=== PATIENT | male | born 1980 | race Caucasian/White ===

== ENCOUNTER → 2018-01-18 | Outpatient (CLI) | payer OTHER ==
[~2018-01-18] MED LIST: AZIT250T PO
[2018-01-18 13:50] LABS: INFLUENZA A PCR Neg for Influ A (NEG); INFLUENZA B PCR Neg for Influ B (NEG)
== END | disposition home or self-care (01) ==
LOC: C.LABPBG 11:36
PROVIDERS: ATTEND Physician Assistant Medical
DX: R68.89 Other general symptoms and signs (principal)

== ENCOUNTER 2018-01-20 05:17 | Emergency (ER) | payer OTHER ==
[~2018-01-20] VITALS: Ht 165.1 cm; Wt 80.0 kg
[2018-01-20 05:19] VITALS: Ht 165.1 cm; Wt 80.0 kg
[2018-01-20] MEDS ORDERED: KETOROLAC TROMETHAMINE 30 MG/ML VIAL IV STA (05:34)
[2018-01-20] MEDS ORDERED: ACETAMINOPHEN 500 MG TAB PO STA (05:34)
[2018-01-20] MEDS ORDERED: SODIUM CHLORIDE 0.9% 1000ML 1,000 ML IV ONE (05:45)
[2018-01-20 06:05] LABS: BASO % 0.3 %; BASO ABS # 0.03 K/uL (0-0.2); EOS % 1.1 %; EOS ABS # 0.12 K/uL (0-0.5); HEMATOCRIT 44.6 % (42-52); HEMOGLOBIN 16.2 g/dL (14.0-18.0); IG# 0.02 K/uL (0.00-0.02); LYMPH % 23.3 %; LYMPH ABS # 2.46 K/uL (1.2-3.4); MEAN CORPUSCULAR HEMOGLOBIN 32.3 pg (25-34); MEAN CORPUSCULAR HGB CONC 36.3 g/dl (32-36); MEAN PLATELET VOLUME 9.2 fL (7.4-10.4); MONO % 20.2 %; MONO ABS # 2.13 K/uL (0.11-0.59); NEUT % 54.9 %; NEUT ABS # 5.81 K/uL (1.4-6.5); PLATELET COUNT 224 K/uL (130-400); RED CELL DISTRIBUTION WIDTH CV 12.4 % (11.5-14.5); RED CELL DISTRIBUTION WIDTH SD 39.8 fL (36.4-46.3); WHITE BLOOD COUNT 10.57 K/uL (4.8-10.8)
[2018-01-20 06:20] LABS: ALBUMIN 3.7 gm/dl (3.4-5.0); CALCIUM 9.3 mg/dl (8.5-10.1); CREATININE 1.26 mg/dl (0.60-1.40); POTASSIUM 3.8 mmol/L (3.5-5.1)
[2018-01-20 06:23] LABS: TOTAL PROTEIN 8.2 gm/dl (6.4-8.2)
--- NOTE | 2018-01-20 06:43 | DIAGNOSTIC IMAGING REPORT ---
CHEST 2 VIEWS ROUTINE CLINICAL HISTORY: Fever. Cough. Dyspnea COMPARISON STUDY: No previous studies for comparison. FINDINGS: The bones soft tissues and hemidiaphragms are normal. The cardiomediastinal silhouette is normal. The lungs are clear. The pulmonary vasculature is normal. IMPRESSION: Negative chest. The above report was generated using voice recognition software. It may contain grammatical, syntax or spelling errors. Electronically signed by: Ky Lindsey M.D. 01/20/2018 6:42 AM Dictated Date/Time: 01/20/2018 6:41 AM
[2018-01-20 06:59] VITALS: TEMP 37.2
[2018-01-20] MEDS ORDERED: AZITHROMYCIN 250 MG TAB PO ONE (07:00)
[2018-01-20] MEDS ORDERED: AZIT250T PO (07:04)
[2018-01-20 07:17] VITALS: BP 129/76; PULSE 76; O2SAT 94
--- NOTE | 2018-01-20 08:50 | EMERGENCY ROOM VISIT NOTE ---
History First contact with patient: 05:25 Chief Complaint: RESPIRATORY PROBLEMS Stated Complaint: FLU LIKE SYM/FEVER Nursing Triage Summary: Fever x 5 days, headache, SOB, dry cough. Pt tested neg for influenza on Tue by Dr Mujica. History of Present Illness The patient is a 37 year old male who presents to the Emergency Room with complaints of fever, chills, cough, and intermittent shortness of breath for the past 4 or 5 days. The patient initially went to his primary care physician' s office where influenza swabs were performed and negative. The patient states his discomfort worsens tonight and he 7 difficulty controlling the fever with at -home medications. His last dose of Tylenol was about 8 hours ago. He rates his current discomfort a 6/10. Review of Systems More than 10 systems were reviewed and otherwise negative with the exception of history of present illness. Past Medical/Surgical History No chronic medical disease Family History No pertinent family history Social History Smoking Status: Former Smoker Housing Status: lives with family Occupation Status: employed Current/Historical Medications Scheduled Azithromycin (Zithromax), 250 MG PO DAILY Physical Exam Vital Signs Date Time Temp Pulse Resp B/P (MAP) Pulse Ox O2 Delivery O2 Flow Rate FiO2 01/20/18 07:17 76 17 129/76 94 01/20/18 06:59 37.2 76 17 129/76 94 Room Air 01/20/18 05:44 97 Room Air 01/20/18 05:19 38.1 105 22 147/52 96 Room Air Physical Exam VITALS: Vitals are noted on the nurse's note and reviewed by myself. Vital signs stable. GENERAL: Well-developed, well-nourished, white male who appears ill but nontoxic EARS: External ear normal. External auditory canals clear, tympanic membranes pearly logan without erythema or effusion bilaterally. EYES: Pupils equal round and reactive to light and accommodation. Conjunctivae without injection, sclerae without icterus. Extraocular movements intact. NOSE: Patent, turbinates without inflammation or discharge. MOUTH: Mucous membranes moist. Tonsils are not enlarged. Pharynx without erythema, blood, or exudate. Uvula midline. Airway patent. NECK: Supple without nuchal rigidity. No lymphadenopathy. No thyromegaly. Cervical spine is nontender. HEART: Regular rate and rhythm without murmurs gallops or rubs. LUNGS: Clear to auscultation bilaterally without wheezes, rales or rhonchi. No retractions or accessory muscle use. ABDOMEN: Positive normal bowel sounds x 4. Soft, nontender, without masses or organomegaly. No guarding or rebound tenderness. Medical Decision & Procedures ER Provider Diagnostic Interpretation: CHEST 2 VIEWS ROUTINE CLINICAL HISTORY: Fever. Cough. Dyspnea COMPARISON STUDY: No previous studies for comparison. FINDINGS: The bones soft tissues and hemidiaphragms are normal. The cardiomediastinal silhouette is normal. The lungs are clear. The pulmonary vasculature is normal. IMPRESSION: Negative chest. Laboratory Results 01/20/18 05:35 Red Blood Count 5.01, Mean Corpuscular Volume 89.0, Mean Corpuscular Hemoglobin 32.3, Mean Corpuscular Hemoglobin Concent 36.3, Mean Platelet Volume 9.2, Neutrophils (%) (Auto) 54.9, Lymphocytes (%) (Auto) 23.3, Monocytes (%) (Auto) 20.2, Eosinophils (%) (Auto) 1.1, Basophils (%) (Auto) 0.3, Neutrophils # (Auto ) 5.81, Lymphocytes # (Auto) 2.46, Monocytes # (Auto) 2.13, Eosinophils # (Auto ) 0.12, Basophils # (Auto) 0.03 01/20/18 05:35 Test 01/20/18 05:35 White Blood Count 10.57 K/uL (4.8-10.8) Red Blood Count 5.01 M/uL (4.7-6.1) Hemoglobin 16.2 g/dL (14.0-18.0) Hematocrit 44.6 % (42-52) Mean Corpuscular Volume 89.0 fL (80-100) Mean Corpuscular Hemoglobin 32.3 pg (25-34) Mean Corpuscular Hemoglobin Concent 36.3 g/dl (32-36) Platelet Count 224 K/uL (130-400) Mean Platelet Volume 9.2 fL (7.4-10.4) Neutrophils (%) (Auto) 54.9 % Lymphocytes (%) (Auto) 23.3 % Monocytes (%) (Auto) 20.2 % Eosinophils (%) (Auto) 1.1 % Basophils (%) (Auto) 0.3 % Neutrophils # (Auto) 5.81 K/uL (1.4-6.5) Lymphocytes # (Auto) 2.46 K/uL (1.2-3.4) Monocytes # (Auto) 2.13 K/uL (0.11-0.59) Eosinophils # (Auto) 0.12 K/uL (0-0.5) Basophils # (Auto) 0.03 K/uL (0-0.2) RDW Standard Deviation 39.8 fL (36.4-46.3) RDW Coefficient of Variation 12.4 % (11.5-14.5) Immature Granulocyte % (Auto) 0.2 % Immature Granulocyte # (Auto) 0.02 K/uL (0.00-0.02) Anion Gap 8.0 mmol/L (3-11) Est Creatinine Clear Calc Drug Dose 79.0 ml/min Estimated GFR () 84.5 Estimated GFR (Non- 72.9 BUN/Creatinine Ratio 7.9 (10-20) Calcium Level 9.3 mg/dl (8.5-10.1) Total Bilirubin 0.8 mg/dl (0.2-1) Aspartate Amino Transf (AST/SGOT) 21 U/L (15-37) Alanine Aminotransferase (ALT/SGPT) 48 U/L (12-78) Alkaline Phosphatase 82 U/L (45-117) Total Protein 8.2 gm/dl (6.4-8.2) Albumin 3.7 gm/dl (3.4-5.0) Globulin 4.5 gm/dl (2.5-4.0) Albumin/Globulin Ratio 0.8 (0.9-2) Medications Administered Medications (Trade) Dose Ordered Sig/[place] Route Start Time Stop Time Status Last Admin Dose Admin Sodium Chloride 1,000 ml @ 999 mls/hr Q1H1M ONCE IV 01/20/18 05:45 01/20/18 06:45 DC 01/20/18 05:41 999 MLS/HR Ketorolac Tromethamine (Toradol Inj) 30 mg NOW STAT IV 01/20/18 05:34 01/20/18 05:35 DC 01/20/18 05:40 30 MG Acetaminophen (Tylenol Tab) 1,000 mg NOW STAT PO 01/20/18 05:34 01/20/18 05:35 DC 01/20/18 05:41 1,000 MG Azithromycin (Zithromax Tab) 500 mg NOW ONCE PO 3/2/18 07:00 01/20/18 07:01 DC 01/20/18 07:04 500 MG ED Course Physical exam and history were performed. Nursing notes, EMR, and Medication List were personally reviewed. Patient appears to have flulike symptoms for the past several days. The patient appears ill but nontoxic on examination. He does have a fever. IV access was established and labs were obtained. The patient was hydrated with normal saline and given IV Toradol and oral Tylenol for comfort. Chest x-ray was performed. The patient's blood work is as above and was reviewed. He does not have a significantly elevated white blood cell count, gross anemia, bandemia, or significant electrolyte imbalance. X-ray was reviewed by myself and radiology as showing no acute findings. On reevaluation the patient appears well. He felt much better after fluids and medication. He will be given a course of Zithromax as his symptoms have been ongoing for several days. He is to follow with his PCP with any ongoing or persistent symptoms. He was pleased with plan of care and voiced understanding. The chart was completed utilizing [employer] Voice Recognition Software. Grammatical errors, random word insertions, pronoun errors, and incomplete sentences are an occasional consequence of this system due to software limitations, ambient noise, and hardware issues. Any formal questions or concerns about the content, text, or information contained within the body of this dictation should be directly addressed to the provider for clarification. . Medical Decision Differential diagnosis: Etiologies such as viral syndrome, otitis, pharyngitis, pneumonia, influenza, meningitis, urinary tract infection, sepsis, bacteremia, as well as others were entertained. Impression Primary Impression: Acute febrile illness Departure Information Dispostion Home / Self-Care Condition GOOD Prescriptions Azithromycin (Zithromax) 250 Mg Tab 250 MG PO DAILY for 4 Days, #4 TAB Prov: Anish Russell PA-C 01/20/18 Forms HOME CARE DOCUMENTATION FORM, IMPORTANT VISIT INFORMATION Patient Instructions [facility] Additional Instructions You were seen and evaluated today on an emergency basis only. This is not a substitute for, or an effort to provide, complete comprehensive medical care. It is not possible to recognize and treat all injuries or illnesses in a single emergency department visit. For this reason it is recommended that you followup with your primary care physician with any ongoing or persistent symptoms. For baseline pain relief you may alternate ibuprofen and acetaminophen every 4 hours for pain control. Take 600 mg ibuprofen (Advil) and then 4 hours later take 1000 mg acetaminophen (Tylenol). Do not take more than 3000 mg acetaminophen in a single day. Take Zithromax 250 mg daily for the next 4 days You are welcome to return to the emergency department anytime with new, worsening, or concerning symptoms.
== END 2018-01-20 07:18 | disposition home or self-care (01) ==
LOC: C.EDB 05:18 → C.EDA 07:18
DX: R50.9 Fever, unspecified (principal); Z87.891 Personal history of nicotine dependence